=== PATIENT | female | born 1990 | race Caucasian/White ===

== ENCOUNTER 2016-09-08 18:35 | Emergency (ER) | payer OTHER | END 2016-09-08 21:59 | disposition home or self-care (01) | LOC: ER 18:35 | DX: R42 Dizziness and giddiness (principal); R06.02 Shortness of breath; F17.210 Nicotine dependence, cigarettes, uncomplicated; Z88.0 Allergy status to penicillin | CPT/HCPCS: 36415 ==

== ENCOUNTER 2016-10-26 14:33 | Emergency (ER) | payer OTHER | END 2016-10-26 17:15 | disposition home or self-care (01) | LOC: ER 14:33 | DX: K29.70 Gastritis, unspecified, without bleeding (principal); F17.210 Nicotine dependence, cigarettes, uncomplicated; Z88.0 Allergy status to penicillin | CPT/HCPCS: 36415 ==

== ENCOUNTER 2016-11-25 07:57 | Emergency (ER) | payer OTHER | END 2016-11-25 09:09 | disposition home or self-care (01) | LOC: ER 07:57 | DX: M62.830 Muscle spasm of back (principal); F17.210 Nicotine dependence, cigarettes, uncomplicated; Z88.0 Allergy status to penicillin | CPT/HCPCS: 96372; J1885 ==